=== PATIENT | male | born 1940 | race Two or more races ===

== ENCOUNTER 2016-07-09 05:13 | Inpatient (IN) | payer SELFPAY ==
[~2016-07-09] VITALS: Ht 172.7 cm; Wt 84.1 kg
[2016-07-09 05:44] LABS: Basophils # (auto) 0.1 uL; Basophils % (auto) 0.7 % (0.0-2.0); DEFINITIVE VIEW TRANSMISSION; Eosinophils # (auto) 0.3 uL; Eosinophils % (auto) 1.9 % (0.0-7.0); Hematocrit 51.4 % (41.0-53.0); Hemoglobin 16.1 g/dL (13.5-17.5); Lymphocytes # (auto) 5.6 uL; Lymphocytes % (auto) 35.2 % (10.0-50.0); Mean Corpuscular Hemoglobin 30.1 pg (28.0-32.0); Mean Corpuscular Hgb Conc. 31.2 g/dL (32.0-36.0); Mean Corpuscular Volume 96.4 fL (80.0-100.0); Mean Platelet Volume 10.5 fL (7.4-10.4); Monocytes # (auto) 1.5 uL; Monocytes % (auto) 9.3 % (0.0-12.0); Neutrophils # (auto) 8.4 uL; Neutrophils % (auto) 52.9 % (37.0-80.0); Platelet Count (auto) 247 10^3/uL (140-450); Red Cell Distribution Width 13.7 % (11.6-16.0); White Blood Cell 15.9 10^3/uL (4.4-10.8)
[2016-07-09 06:10] LABS: Albumin 3.7 g/dL (3.4-5.0); BUN/Creatinine Ratio 16.8; Calcium 8.6 mg/dL (8.5-10.1); Potassium 3.4 mmol/L (3.5-5.1)
[2016-07-09 06:20] LABS: Lactic Acid 2.2 mmol/L (0.4-2.0)
[2016-07-09 06:26] LABS: Bilirubin, Total 0.7 mg/dL (0.2-1.0)
[2016-07-09] MEDS ORDERED: FUROSEMIDE 40 MG/4 ML VIAL IV ONE (06:30)
[2016-07-09] MEDS ORDERED: LEVOFLOXACIN 500MG 100 ML IV ONE (06:30)
[2016-07-09 06:33] VITALS: BP 121/71
[2016-07-09 06:47] LABS: B-Type Natriuretic Peptide 913.1 pg/mL (0-100); Temperature: 21.9 C (20.0-25.0)
[2016-07-09 06:54] LABS: REFLEX LACTIC ACID YES OR NO YES
[2016-07-09 07:32] VITALS: BP 118/66
[2016-07-09] MEDS ORDERED: TEMAZEPAM 15 MG CAP PO PRN (09:00)
[2016-07-09] MEDS ORDERED: PROMETHAZINE HCL 25 MG/ML 1ML IV PRN (09:00)
[2016-07-09] MEDS ORDERED: MORPHINE SULF INJ 2 MG/ML SYRINGE 1ML IV PRN ×2 (09:00)
[2016-07-09] MEDS ORDERED: DEXTROSE (50%) 50ML SYRG IV PRN (09:00)
[2016-07-09] MEDS ORDERED: NITROGLYCERIN 0.4 MG SL TAB SL PRN (09:00)
[2016-07-09] MEDS ORDERED: ACETAMINOPHEN 500 MG TAB PO PRN (09:00)
[2016-07-09] MEDS ORDERED: LORazepam 0.5 MG TAB PO PRN (09:00)
[2016-07-09] MEDS ORDERED: HYDROcodone-ACET 5/325MG TAB PO PRN (09:00)
[2016-07-09] MEDS ORDERED: LACTULOSE 20Gm/30ML SOLN PO PRN (09:00)
[2016-07-09] MEDS ORDERED: cefTRIAXone 1GM/50ML D5W 50 ML IV SCH (09:00)
[2016-07-09] MEDS ORDERED: METF-312 PO (09:20)
[2016-07-09] MEDS ORDERED: ENA10T PO (09:20)
[2016-07-09] MEDS ORDERED: OSELTAMIVIR 75 MG CAP PO ONE ×2 (09:30→12:15)
[2016-07-09 09:51] LABS: Urine RBC None Seen /hpf (0 - 3)
[2016-07-09 09:55] LABS: INR 1.09 (0.9-1.15); Partial Thromboplastin Time 24.6 sec (22.64-33.71); Prothrombin Time 11.2 sec (9.37-12.3)
[2016-07-09] MEDS ORDERED: AZITHROMYCIN 500MG/D5W 250ML 250 ML IV SCH (10:00)
[2016-07-09 10:11] LABS: Urine Bilirubin Negative (Negative); Urine Blood Negative /uL (Negative); Urine Color Yellow (Yellow); Urine Glucose Normal (Normal); Urine Ketone Negative (Negative); Urine Nitrite Negative (Negative); Urine Squamous Epithelial Cell FEW /hpf (<5); Urine Urobilinogen Normal (Negative); Urine pH 5.5 (5.0-8.0)
[2016-07-09] MEDS ORDERED: IOHEXOL 350 MG/ML 100ML IJ ONE (11:15)
[2016-07-09] MEDS ORDERED: IODIXANOL 320MG/ML 100ML BTL IV ONE (11:20)
[2016-07-09] MEDS: FUROSEMIDE 40 MG/4 ML VIAL IV SCH (11:39)
[2016-07-09] MEDS: ASPirin 81 mg TAB PO SCH (11:39)
[2016-07-09] MEDS: NITROGLYCERIN 0.2MG/HR TOPICAL PATCH TD SCH (11:40)
[2016-07-09] MEDS: CARVEDILOL 3.125 MG TAB PO SCH ×2 (11:40→22:00)
[2016-07-09] MEDS: ENOXAPARIN SOD 100 MG/1 ML SYRINGE SC SCH ×2 (11:41→22:00)
[2016-07-09] MEDS: POTASSIUM CHL 20 Meq TABLET PO SCH (11:41)
[2016-07-09] MEDS: ENALAPRIL MALEATE 2.5 MG TAB PO SCH (11:41)
[2016-07-09] MEDS ORDERED: ALBUTEROL SULF 2.5 MG/0.5ML(0.5%) NEB SOLN NEB SCH (12:00)
[2016-07-09] MEDS: IPRATROPIUM BROM 0.5 MG/2.5ML INH SOL NEB SCH ×2 (12:15→19:10)
[2016-07-09] MEDS: ACCU-CHEK COMFORT CURVE STRIP VI SCH ×3 (13:00→20:00)
[2016-07-09] MEDS: InsuLIN REG 1unit/0.01ml Soln (100units/ml) SC SCH ×3 (13:48→21:05)
[2016-07-09] MEDS: SODIUM CHLOR 0.9% PF (SALINE LOCK) 10ML VIAL IV SCH ×2 (13:50→22:00)
[2016-07-09] MEDS: ATORVASTATIN 20 MG TAB PO SCH (22:00)
[2016-07-09] MEDS: OSELTAMIVIR 75 MG CAP PO SCH (22:00)
[2016-07-09] MEDS ORDERED: LACTULOSE 20Gm/30ML SOLN PO ONE (22:45)
[2016-07-10] MEDS: IPRATROPIUM BROM 0.5 MG/2.5ML INH SOL NEB SCH ×4 (00:25→19:23)
[2016-07-10 02:39] VITALS: BP 123/72
[2016-07-10] MEDS: ACCU-CHEK COMFORT CURVE STRIP VI SCH ×6 (04:00→20:35)
[2016-07-10] MEDS: InsuLIN REG 1unit/0.01ml Soln (100units/ml) SC SCH ×6 (04:00→20:53)
[2016-07-10] MEDS: SODIUM CHLOR 0.9% PF (SALINE LOCK) 10ML VIAL IV SCH ×3 (05:45→21:34)
[2016-07-10 06:41] LABS: Basophils # (auto) 0.1 uL; Basophils % (auto) 0.4 % (0.0-2.0); Eosinophils # (auto) 0.1 uL; Eosinophils % (auto) 0.9 % (0.0-7.0); Hematocrit 45.3 % (41.0-53.0); Hemoglobin 14.5 g/dL (13.5-17.5); Lymphocytes # (auto) 3.4 uL; Lymphocytes % (auto) 28.6 % (10.0-50.0); Mean Corpuscular Hemoglobin 30.3 pg (28.0-32.0); Mean Corpuscular Hgb Conc. 32.1 g/dL (32.0-36.0); Mean Corpuscular Volume 94.6 fL (80.0-100.0); Mean Platelet Volume 10.2 fL (7.4-10.4); Monocytes # (auto) 1.4 uL; Monocytes % (auto) 11.5 % (0.0-12.0); Neutrophils % (auto) 58.6 % (37.0-80.0); Platelet Count (auto) 225 10^3/uL (140-450); Red Cell Distribution Width 13.8 % (11.6-16.0)
[2016-07-10 07:10] LABS: B-Type Natriuretic Peptide 303.95 pg/mL (0-100); Temperature: 22.2 C (20.0-25.0)
[2016-07-10 07:26] LABS: Albumin 3.2 g/dL (3.4-5.0); BUN/Creatinine Ratio 25.6; Bilirubin, Total 0.6 mg/dL (0.2-1.0); Calcium 8.8 mg/dL (8.5-10.1); Potassium 3.8 mmol/L (3.5-5.1); Total Protein 7.1 g/dL (6.4-8.2)
[2016-07-10] MEDS: FUROSEMIDE 40 MG/4 ML VIAL IV SCH (09:40)
[2016-07-10] MEDS: ASPirin 81 mg TAB PO SCH (09:41)
[2016-07-10] MEDS: CARVEDILOL 3.125 MG TAB PO SCH ×2 (09:41→21:35)
[2016-07-10] MEDS: ENALAPRIL MALEATE 2.5 MG TAB PO SCH (09:42)
[2016-07-10] MEDS: POTASSIUM CHL 20 Meq TABLET PO SCH (09:42)
[2016-07-10] MEDS: OSELTAMIVIR 75 MG CAP PO SCH (09:42)
[2016-07-10] MEDS: NITROGLYCERIN 0.2MG/HR TOPICAL PATCH TD SCH (09:43)
[2016-07-10] MEDS ORDERED: ACETYLCYSTEINE ORAL for CIN 20%(200MG/ML) 4ML PO SCH (10:00)
[2016-07-10] MEDS: ACETYLCYSTEINE ORAL for CIN 20%(200MG/ML) 4ML PO SCH ×2 (10:45→21:13)
[2016-07-10] MEDS: SPIRONOLACTONE 25 MG TAB PO SCH ×2 (11:00→18:41)
[2016-07-10] MEDS: ENOXAPARIN SOD 100 MG/1 ML SYRINGE SC SCH ×2 (11:30→21:07)
[2016-07-10 12:40] VITALS: BP 134/71
[2016-07-10] MEDS ORDERED: ENAL20TA70 PO (13:04)
[2016-07-10 17:00] VITALS: BP 123/75
[2016-07-10 20:00] VITALS: BP 115/69
[2016-07-10] MEDS: ATORVASTATIN 20 MG TAB PO SCH (21:10)
[2016-07-10 22:41] VITALS: BP 122/75
[2016-07-11] MEDS: IPRATROPIUM BROM 0.5 MG/2.5ML INH SOL NEB SCH ×4 (01:13→18:51)
[2016-07-11] MEDS: InsuLIN REG 1unit/0.01ml Soln (100units/ml) SC SCH ×6 (04:00→20:04)
[2016-07-11] MEDS: ACCU-CHEK COMFORT CURVE STRIP VI SCH ×6 (04:20→19:58)
[2016-07-11 05:21] VITALS: BP 135/72
[2016-07-11] MEDS: SODIUM CHLOR 0.9% PF (SALINE LOCK) 10ML VIAL IV SCH ×3 (05:38→22:25)
[2016-07-11] MEDS: SPIRONOLACTONE 25 MG TAB PO SCH ×2 (05:38→17:58)
[2016-07-11 09:00] VITALS: BP 133/80
[2016-07-11] MEDS ORDERED: CLOPIDOGREL 300 MG TAB PO ONE (10:00)
[2016-07-11] MEDS: ACETYLCYSTEINE ORAL for CIN 20%(200MG/ML) 4ML PO SCH ×2 (10:54→22:25)
[2016-07-11] MEDS: ENALAPRIL MALEATE 2.5 MG TAB PO SCH (10:54)
[2016-07-11] MEDS: NITROGLYCERIN 0.2MG/HR TOPICAL PATCH TD SCH (10:55)
[2016-07-11] MEDS: FUROSEMIDE 40 MG/4 ML VIAL IV SCH ×2 (10:56→17:58)
[2016-07-11] MEDS: POTASSIUM CHL 20 Meq TABLET PO SCH (10:56)
[2016-07-11] MEDS: CLOPIDOGREL BISULFATE 75 MG TAB PO SCH (10:56)
[2016-07-11] MEDS: CARVEDILOL 3.125 MG TAB PO SCH ×2 (10:57→22:25)
[2016-07-11] MEDS: ENOXAPARIN SOD 100 MG/1 ML SYRINGE SC SCH ×2 (10:57→22:25)
[2016-07-11] MEDS: ASPirin 81 mg TAB PO SCH (10:57)
[2016-07-11 13:00] VITALS: BP 137/79
[2016-07-11 17:00] VITALS: BP 113/70
[2016-07-11 21:42] VITALS: BP 118/78
[2016-07-11] MEDS: ATORVASTATIN 20 MG TAB PO SCH (22:24)
[2016-07-12] MEDS: ACCU-CHEK COMFORT CURVE STRIP VI SCH ×6 (00:01→19:53)
[2016-07-12] MEDS: InsuLIN REG 1unit/0.01ml Soln (100units/ml) SC SCH ×6 (00:03→19:54)
[2016-07-12] MEDS: IPRATROPIUM BROM 0.5 MG/2.5ML INH SOL NEB SCH ×4 (00:08→18:45)
[2016-07-12] MEDS: ALBUTEROL SULF 2.5 MG/0.5ML(0.5%) NEB SOLN NEB PRN ×2 (00:09→07:20)
[2016-07-12 05:00] VITALS: BP 143/72
[2016-07-12] MEDS: SODIUM CHLOR 0.9% PF (SALINE LOCK) 10ML VIAL IV SCH ×3 (05:24→22:18)
[2016-07-12] MEDS: FUROSEMIDE 40 MG/4 ML VIAL IV SCH ×2 (05:24→18:25)
[2016-07-12] MEDS: SPIRONOLACTONE 25 MG TAB PO SCH ×2 (05:25→18:25)
[2016-07-12 08:51] VITALS: BP 138/66
[2016-07-12] MEDS: POTASSIUM CHL 20 Meq TABLET PO SCH (10:55)
[2016-07-12] MEDS: ASPirin 81 mg TAB PO SCH (10:56)
[2016-07-12] MEDS: ENALAPRIL MALEATE 2.5 MG TAB PO SCH (10:56)
[2016-07-12] MEDS: CLOPIDOGREL BISULFATE 75 MG TAB PO SCH (10:56)
[2016-07-12] MEDS: CARVEDILOL 3.125 MG TAB PO SCH ×2 (10:57→22:19)
[2016-07-12] MEDS: NITROGLYCERIN 0.2MG/HR TOPICAL PATCH TD SCH (10:57)
[2016-07-12 13:00] VITALS: BP 137/72
[2016-07-12 15:22] LABS: Urine Bilirubin Negative (Negative); Urine Color Red (Yellow); Urine Glucose Normal (Normal); Urine Ketone Negative (Negative); Urine Nitrite Negative (Negative); Urine RBC 2646 /hpf (0 - 3); Urine Urobilinogen Normal (Negative); Urine pH 5.5 (5.0-8.0)
[2016-07-12 15:23] LABS: Urine Blood 3+ /uL (Negative)
[2016-07-12 17:01] VITALS: BP 102/64
[2016-07-12 22:00] VITALS: BP 134/80
[2016-07-12] MEDS: ATORVASTATIN 20 MG TAB PO SCH (22:19)
[2016-07-12 23:36] VITALS: BP 134/80
[2016-07-13] MEDS: IPRATROPIUM BROM 0.5 MG/2.5ML INH SOL NEB SCH ×4 (00:07→17:58)
[2016-07-13] MEDS: ALBUTEROL SULF 2.5 MG/0.5ML(0.5%) NEB SOLN NEB PRN ×2 (00:08→17:58)
[2016-07-13] MEDS: ACCU-CHEK COMFORT CURVE STRIP VI SCH ×6 (00:09→21:37)
[2016-07-13] MEDS: InsuLIN REG 1unit/0.01ml Soln (100units/ml) SC SCH ×6 (03:48→21:37)
[2016-07-13 05:00] VITALS: BP 130/64
[2016-07-13] MEDS: FUROSEMIDE 40 MG/4 ML VIAL IV SCH ×2 (05:40→18:24)
[2016-07-13] MEDS: SODIUM CHLOR 0.9% PF (SALINE LOCK) 10ML VIAL IV SCH ×3 (05:41→21:47)
[2016-07-13] MEDS: SPIRONOLACTONE 25 MG TAB PO SCH ×2 (05:41→18:24)
[2016-07-13 05:51] LABS: Temperature: 21.1 C (20.0-25.0)
[2016-07-13 05:59] LABS: BUN/Creatinine Ratio 31.3; Calcium 9.1 mg/dL (8.5-10.1); Potassium 3.5 mmol/L (3.5-5.1)
[2016-07-13] MEDS ORDERED: MIDAZOLAM HCL 1MG/1ML-2 ML VIAL ONE (08:02)
[2016-07-13] MEDS ORDERED: fentaNYL CITRATE 100 MCG/2 ML VL ONE (08:02)
[2016-07-13] MEDS ORDERED: SODIUM CHL 0.9% 0 ML ONE (08:03)
[2016-07-13] MEDS ORDERED: ANGIOMAX 250 MG VIAL IV ONE (08:03)
[2016-07-13] MEDS ORDERED: LIDOCAINE 2%HCL (LOCAL ANESTH.) INJ 20ML MDV ONE (08:53)
[2016-07-13] MEDS ORDERED: IOHEXOL 350 MG/ML 100ML IJ ONE (08:53)
[2016-07-13 09:12] LABS: Basophils # (auto) 0 uL; Basophils % (auto) 0.2 % (0.0-2.0); Eosinophils # (auto) 0.2 uL; Eosinophils % (auto) 1.6 % (0.0-7.0); Hematocrit 46.4 % (41.0-53.0); Hemoglobin 15.6 g/dL (13.5-17.5); Lymphocytes # (auto) 2.2 uL; Lymphocytes % (auto) 19.3 % (10.0-50.0); Mean Corpuscular Hemoglobin 31.5 pg (28.0-32.0); Mean Corpuscular Hgb Conc. 33.6 g/dL (32.0-36.0); Mean Corpuscular Volume 93.8 fL (80.0-100.0); Mean Platelet Volume 10.3 fL (7.4-10.4); Monocytes # (auto) 1.3 uL; Monocytes % (auto) 11.9 % (0.0-12.0); Neutrophils # (auto) 7.6 uL; Platelet Count (auto) 253 10^3/uL (140-450); Red Cell Distribution Width 13.4 % (11.6-16.0); White Blood Cell 11.3 10^3/uL (4.4-10.8)
[2016-07-13] MEDS ORDERED: MORPHINE SULF INJ 2 MG/ML SYRINGE 1ML ONE (09:17)
[2016-07-13 09:20] VITALS: BP 130/65
[2016-07-13] MEDS: CLOPIDOGREL BISULFATE 75 MG TAB PO SCH (10:00)
[2016-07-13] MEDS: CARVEDILOL 3.125 MG TAB PO SCH ×3 (10:00→21:47)
[2016-07-13] MEDS: ASPirin 81 mg TAB PO SCH (10:00)
[2016-07-13] MEDS: NITROGLYCERIN 0.2MG/HR TOPICAL PATCH TD SCH ×2 (10:00→13:00)
[2016-07-13] MEDS: ENALAPRIL MALEATE 2.5 MG TAB PO SCH ×2 (10:00→13:02)
[2016-07-13] MEDS: POTASSIUM CHL 20 Meq TABLET PO SCH (10:00)
[2016-07-13] MEDS: METOLAZONE 5 MG TAB PO SCH (10:00)
[2016-07-13 10:10] LABS: INR 1.05 (0.9-1.15); Prothrombin Time 10.8 sec (9.37-12.3)
[2016-07-13] MEDS ORDERED: SODIUM CHLORIDE 0.9% 1,000 ML IV SCH (10:46)
[2016-07-13] MEDS ORDERED: MORPHINE SULF INJ 2 MG/ML SYRINGE 1ML IV PRN ×2 (11:00)
[2016-07-13] MEDS ORDERED: ACETAMINOPHEN 500 MG TAB PO PRN (11:00)
[2016-07-13] MEDS ORDERED: NITROGLYCERIN 0.4 MG SL TAB SL PRN ×2 (11:00)
[2016-07-13 13:00] VITALS: BP 139/77
[2016-07-13] MEDS: ENOXAPARIN SOD 80 MG/0.8ML SYRINGE SC SCH ×2 (15:15→21:47)
[2016-07-13 17:00] VITALS: BP 111/64
[2016-07-13] MEDS: ATORVASTATIN 20 MG TAB PO SCH (21:47)
[2016-07-13 22:00] VITALS: BP 121/70
[2016-07-14] MEDS: IPRATROPIUM BROM 0.5 MG/2.5ML INH SOL NEB SCH ×4 (00:35→19:43)
[2016-07-14] MEDS: ALBUTEROL SULF 2.5 MG/0.5ML(0.5%) NEB SOLN NEB PRN (00:35)
[2016-07-14 05:00] VITALS: BP 138/72
[2016-07-14] MEDS: FUROSEMIDE 40 MG/4 ML VIAL IV SCH ×2 (05:50→18:27)
[2016-07-14] MEDS: SPIRONOLACTONE 25 MG TAB PO SCH ×2 (05:51→18:00)
[2016-07-14] MEDS: SODIUM CHLOR 0.9% PF (SALINE LOCK) 10ML VIAL IV SCH ×3 (05:51→22:39)
[2016-07-14] MEDS: ACCU-CHEK COMFORT CURVE STRIP VI SCH ×4 (06:47→22:00)
[2016-07-14] MEDS: InsuLIN REG 1unit/0.01ml Soln (100units/ml) SC SCH ×4 (06:48→23:09)
[2016-07-14] MEDS ORDERED: MORPHINE SULF INJ 2 MG/ML SYRINGE 1ML IV PRN ×3 (07:45→17:15)
[2016-07-14] MEDS ORDERED: NITROGLYCERIN 0.4 MG SL TAB SL PRN ×2 (07:45→17:15)
[2016-07-14 08:00] VITALS: BP 138/65
[2016-07-14] MEDS ORDERED: AMIODARONE HCL 200 MG TAB PO ONE (08:00)
[2016-07-14 08:54] LABS: Basophils # (auto) 0 uL; Basophils % (auto) 0.2 % (0.0-2.0); Eosinophils # (auto) 0.1 uL; Hematocrit 44.1 % (41.0-53.0); Hemoglobin 15.1 g/dL (13.5-17.5); Lymphocytes # (auto) 2.4 uL; Lymphocytes % (auto) 21.5 % (10.0-50.0); Mean Corpuscular Hemoglobin 31.7 pg (28.0-32.0); Mean Corpuscular Hgb Conc. 34.2 g/dL (32.0-36.0); Mean Corpuscular Volume 92.7 fL (80.0-100.0); Mean Platelet Volume 10.3 fL (7.4-10.4); Monocytes % (auto) 9.1 % (0.0-12.0); Neutrophils # (auto) 7.7 uL; Neutrophils % (auto) 68.2 % (37.0-80.0); Platelet Count (auto) 254 10^3/uL (140-450); Red Cell Distribution Width 13.6 % (11.6-16.0); White Blood Cell 11.2 10^3/uL (4.4-10.8)
[2016-07-14 09:00] VITALS: BP 124/71
[2016-07-14 09:20] LABS: Albumin 3.3 g/dL (3.4-5.0); BUN/Creatinine Ratio 33.6; Bilirubin, Total 0.8 mg/dL (0.2-1.0); Calcium 8.7 mg/dL (8.5-10.1); Potassium 3.8 mmol/L (3.5-5.1); Total Protein 7.7 g/dL (6.4-8.2)
[2016-07-14] MEDS: ENOXAPARIN SOD 80 MG/0.8ML SYRINGE SC SCH (10:00)
[2016-07-14] MEDS: CARVEDILOL 3.125 MG TAB PO SCH ×2 (10:16→22:43)
[2016-07-14] MEDS: ASPirin 81 mg TAB PO SCH (10:16)
[2016-07-14] MEDS: ENALAPRIL MALEATE 2.5 MG TAB PO SCH (10:16)
[2016-07-14] MEDS: POTASSIUM CHL 20 Meq TABLET PO SCH (10:17)
[2016-07-14] MEDS: METOLAZONE 5 MG TAB PO SCH (10:17)
[2016-07-14] MEDS: NITROGLYCERIN 0.2MG/HR TOPICAL PATCH TD SCH (10:19)
[2016-07-14 13:00] VITALS: BP 122/60
[2016-07-14] MEDS ORDERED: LIDOCAINE 2%HCL (LOCAL ANESTH.) INJ 20ML MDV ONE (13:51)
[2016-07-14] MEDS ORDERED: IODIXANOL 320MG/ML 100ML BTL IV ONE (13:53)
[2016-07-14] MEDS ORDERED: ANGIOMAX 250 MG VIAL IV ONE (15:40)
[2016-07-14] MEDS ORDERED: MIDAZOLAM HCL 1MG/1ML-2 ML VIAL ONE (15:41)
[2016-07-14] MEDS ORDERED: SODIUM CHL 0.9% 50 ML ONE (15:41)
[2016-07-14] MEDS ORDERED: fentaNYL CITRATE 100 MCG/2 ML VL ONE (15:41)
[2016-07-14] MEDS ORDERED: MORPHINE SULF INJ 2 MG/ML SYRINGE 1ML ONE (15:59)
[2016-07-14] MEDS ORDERED: HEPARIN 1,000 UNITS/ml 1ML VIAL ONE (16:06)
[2016-07-14] MEDS ORDERED: EPINEPHrine HCL 1 MG/10 ML SYRG ONE (16:19)
[2016-07-14] MEDS ORDERED: ATROPINE SULF 0.5 MG/5ML SYR ONE (16:19)
[2016-07-14] MEDS ORDERED: SODIUM BICARBONATE 8.4% INJ 50ML SYRINGE ONE (16:42)
[2016-07-14] MEDS ORDERED: CLOPIDOGREL 300 MG TAB ONE (16:57)
[2016-07-14] MEDS ORDERED: SODIUM CHLORIDE 0.9% 1,000 ML IV SCH (17:06)
[2016-07-14] MEDS ORDERED: LORazepam 0.5 MG TAB PO PRN (17:15)
[2016-07-14] MEDS ORDERED: CLOPIDOGREL 300 MG TAB PO ONE ×2 (17:15→17:30)
[2016-07-14] MEDS ORDERED: MILK OF MAGNESIA 30ML SUSP PO ONE (17:15)
[2016-07-14] MEDS ORDERED: ONDANSETRON HCL 4 MG/2 ML VIAL IV PRN (17:15)
[2016-07-14] MEDS ORDERED: ACETAMINOPHEN 500 MG TAB PO PRN (17:15)
[2016-07-14] MEDS ORDERED: D5W IV SCH (17:30)
[2016-07-14] MEDS ORDERED: SODIUM BICARBONATE IV SCH (17:30)
[2016-07-14 20:00] VITALS: BP 128/61
[2016-07-14 20:31] VITALS: BP 128/61
[2016-07-14] MEDS: ATORVASTATIN 20 MG TAB PO SCH (22:39)
[2016-07-14] MEDS: FAMOTIDINE 20 MG TAB PO SCH (22:43)
[2016-07-14] MEDS: AMIODARONE HCL 200 MG TAB PO SCH (22:43)
[2016-07-15] VITALS: BP 131/72
[2016-07-15] MEDS: IPRATROPIUM BROM 0.5 MG/2.5ML INH SOL NEB SCH ×3 (00:09→11:27)
[2016-07-15] MEDS: ALBUTEROL SULF 2.5 MG/0.5ML(0.5%) NEB SOLN NEB PRN (00:09)
[2016-07-15 04:00] VITALS: BP 139/54
[2016-07-15] MEDS ORDERED: LATA0.00 EACHEYE (05:39)
[2016-07-15] MEDS ORDERED: MUPIROCIN 2% OINT 22GM TOP SCH (06:00)
[2016-07-15 06:25] LABS: BUN/Creatinine Ratio 35.4; Potassium 3.6 mmol/L (3.5-5.1)
[2016-07-15] MEDS: FUROSEMIDE 40 MG/4 ML VIAL IV SCH ×2 (06:33→18:19)
[2016-07-15] MEDS: SODIUM CHLOR 0.9% PF (SALINE LOCK) 10ML VIAL IV SCH ×2 (06:33→14:20)
[2016-07-15] MEDS: ACCU-CHEK COMFORT CURVE STRIP VI SCH ×3 (06:34→17:00)
[2016-07-15] MEDS: SPIRONOLACTONE 25 MG TAB PO SCH ×2 (06:34→18:19)
[2016-07-15] MEDS: InsuLIN REG 1unit/0.01ml Soln (100units/ml) SC SCH ×3 (07:43→17:00)
[2016-07-15 08:00] VITALS: BP 143/60
[2016-07-15] MEDS: AMIODARONE HCL 200 MG TAB PO SCH (09:36)
[2016-07-15] MEDS: ASPirin 81 mg TAB PO SCH (09:36)
[2016-07-15] MEDS: CARVEDILOL 3.125 MG TAB PO SCH (09:37)
[2016-07-15] MEDS: FAMOTIDINE 20 MG TAB PO SCH (09:37)
[2016-07-15] MEDS: POTASSIUM CHL 20 Meq TABLET PO SCH (09:37)
[2016-07-15] MEDS: METOLAZONE 5 MG TAB PO SCH (09:38)
[2016-07-15] MEDS: NITROGLYCERIN 0.2MG/HR TOPICAL PATCH TD SCH (09:38)
[2016-07-15] MEDS: ENALAPRIL MALEATE 2.5 MG TAB PO SCH (09:38)
[2016-07-15 11:24] VITALS: BP 139/71
[2016-07-15 16:00] VITALS: BP 118/56
[2016-07-15 17:33] VITALS: BP 118/56
[2016-07-15] MEDS ORDERED: ASCORBIC ACID 500 MG TAB PO ONE (22:00)
[2016-07-16] MEDS ORDERED: CHLORHEXIDINE 4% TOPICAL soln 473ML TOP ONE (02:00)
[2016-07-16] MEDS ORDERED: VANCOMYCIN 1GM/250ML D5W 250 ML IV ONE (06:00)
[2016-07-16] MEDS ORDERED: CHLORHEXIDINE 0.12% ORAL rinse 473ML MT ONE (06:00)
[2016-07-16] MEDS ORDERED: ceFAZolin 1GM 2 GM in D5W 5% 50 ML IV ONE (06:00)
[2016-07-16] MEDS ORDERED: ACCU-CHEK COMFORT CURVE STRIP VI ONE (06:00)
== END 2016-07-15 19:20 | disposition home or self-care (01) | DRG 246 ==
LOC: ER 05:14 → TELE 05:15 → UNDOADMIN 05:15 → TELE-E-ADS 07-10 12:01 → TELE-CENTR 07-10 14:25 → DOU IN ICU 07-14 18:04
PROVIDERS: ADMIT Internal Medicine; ATTEND Internal Medicine Pulmonary Disease
PROC: 027035Z Dilation of Coronary Artery, One Artery with Two Drug-eluting Intraluminal Devices, Percutaneous Approach (ICD-10-PCS; principal; 2016-07-13)
PROC: 4A023N7 Measurement of Cardiac Sampling and Pressure, Left Heart, Percutaneous Approach (ICD-10-PCS; 2016-07-13)
PROC: B2111ZZ Fluoroscopy of Multiple Coronary Arteries using Low Osmolar Contrast (ICD-10-PCS; 2016-07-13)
DX: I21.4 Non-ST elevation (NSTEMI) myocardial infarction (principal); I50.43 Acute on chronic combined systolic (congestive) and diastolic (congestive) heart failure; J96.01 Acute respiratory failure with hypoxia; I13.0 Hypertensive heart and chronic kidney disease with heart failure and stage 1 through stage 4 chronic kidney disease, or unspecified chronic kidney disease; E78.5 Hyperlipidemia, unspecified; I25.10 Atherosclerotic heart disease of native coronary artery without angina pectoris; I48.91 Unspecified atrial fibrillation; E66.9 Obesity, unspecified; I25.5 Ischemic cardiomyopathy; N18.9 Chronic kidney disease, unspecified; E11.22 Type 2 diabetes mellitus with diabetic chronic kidney disease; I73.9 Peripheral vascular disease, unspecified; Z68.28 Body mass index [BMI] 28.0-28.9, adult; Z87.891 Personal history of nicotine dependence; Z90.49 Acquired absence of other specified parts of digestive tract; Z83.3 Family history of diabetes mellitus; Z82.1 Family history of blindness and visual loss
CPT/HCPCS: 36415; 36600; 51702; 71010; 71020; 71275; 76700; 80048; 80053; 80061; 81001; 82270; 82550; 82565; 82805; 82962; 83036; 83605; 83735; 83880; 84439; 84443; 84484; 85025; 85379; 85576; 85610; 85652; 85730; 86141; 86850; 86900; 86901; 86920; 87040; 87081; 87400; 87493; 92928; 93005; 93306; 93458; 93886; 94010; 94640; 94660; 96365; 96367; 96375; 99291; J0461; J0696; J1815; J1956; J2250; Q9967

== ENCOUNTER 2016-12-16 06:04 | Inpatient (IN) | payer MEDICAID ==
[~2016-12-16] VITALS: Ht 167.6 cm; Wt 81.6 kg
[2016-12-16] VITALS (7 sets, daily range): BP systolic 154–186; BP diastolic 61–113
[~2016-12-16 06:04] MED LIST: ENAL20TA70 PO; LATA0.00 EACHEYE; METF-370 PO
[2016-12-16 06:30] LABS: Allen Test Yes; Base Excess -4.3 mmol/L (-2.0-2.0); Blood 02Sat 95.7 % (96-100); Blood COHb 0.1 % (0.5-1.5); Blood MetHb 0.3 % (0.0-1.5); HCO3 22.2 mmol/L (22-26.0); HHb 4.3 % (0.0-5.0); MODE MASK - BIPAP; O2Hb 95.3 % (94.0-97.0); PCO2 45.6 mmHg (35.0-45.0); PCO2(T) 45.6 mmHg (35.0-45.0); PIP 15; PO2 96.7 mmHg (80.0-100.0); PO2(T) 96.7 mmHg (80.0-100.0); Pressure Support 8; Sample Type Arterial; pH 7.305 (7.350-7.450)
[2016-12-16] MEDS ORDERED: DILTIAZEM HCL 25 MG/5 ML VIAL IV ONE (06:30)
[2016-12-16] MEDS ORDERED: NITROGLYCERIN 50MG/250ML 250 ML IV ONE (06:30)
[2016-12-16] MEDS ORDERED: ENALAPRILAT 1.25 MG/ML-1ML VIAL IV ONE (06:30)
[2016-12-16 06:42] LABS: Basophils # (auto) 0.1 uL; Basophils % (auto) 0.9 % (0.0-2.0); CONDITION Y; Eosinophils # (auto) 0.3 uL; Eosinophils % (auto) 2.3 % (0.0-7.0); Hematocrit 48.9 % (41.0-53.0); Hemoglobin 16.4 g/dL (13.5-17.5); Lymphocytes # (auto) 4.3 uL; Lymphocytes % (auto) 34.9 % (10.0-50.0); Mean Corpuscular Hemoglobin 31.6 pg (28.0-32.0); Mean Corpuscular Hgb Conc. 33.5 g/dL (32.0-36.0); Mean Corpuscular Volume 94.5 fL (80.0-100.0); Mean Platelet Volume 10.4 fL (7.4-10.4); Monocytes % (auto) 8.1 % (0.0-12.0); Neutrophils # (auto) 6.6 uL; Neutrophils % (auto) 53.8 % (37.0-80.0); Platelet Count (auto) 263 10^3/uL (140-450); Red Cell Distribution Width 14.1 % (11.6-16.0); White Blood Cell 12.3 10^3/uL (4.4-10.8)
[2016-12-16 06:54] LABS: Partial Thromboplastin Time 20.4 sec (22.64-33.71); Prothrombin Time 10.9 sec (9.37-12.3)
[2016-12-16 07:01] LABS: BUN/Creatinine Ratio 18.2; Calcium 8.8 mg/dL (8.5-10.1); Magnesium 2.4 mg/dL (1.6-2.6); Potassium 3.9 mmol/L (3.5-5.1)
[2016-12-16 07:08] LABS: B-Type Natriuretic Peptide 742.1 pg/mL (0-100); Temperature: 23.9 C (20.0-25.0)
[2016-12-16 07:09] LABS: Bilirubin, Total 0.6 mg/dL (0.2-1.0); Total Protein 8.6 g/dL (6.4-8.2)
[2016-12-16] MEDS ORDERED: SODIUM CHLORIDE 0.9% 1,000 ML IV ONE ×2 (09:02)
[2016-12-16] MEDS ORDERED: IOHEXOL 350 MG/ML 100ML IJ ONE (09:04)
[2016-12-16] MEDS ORDERED: FUROSEMIDE 20 MG/2 ML VIAL IV ONE (09:15)
[2016-12-16] MEDS ORDERED: cefTRIAXone 1GM/50ML D5W 50 ML IV ONE (09:15)
[2016-12-16] MEDS ORDERED: IODIXANOL 320MG/ML 100ML BTL IV ONE (09:20)
[2016-12-16] MEDS ORDERED: ACETAMINOPHEN 500 MG TAB PO PRN (10:15)
[2016-12-16] MEDS ORDERED: MORPHINE SULF INJ 2 MG/ML SYRINGE 1ML IV PRN ×2 (10:15)
[2016-12-16] MEDS ORDERED: NITROGLYCERIN 0.4 MG SL TAB SL PRN (10:15)
[2016-12-16] MEDS ORDERED: TEMAZEPAM 15 MG CAP PO PRN (10:15)
[2016-12-16] MEDS ORDERED: DEXTROSE (50%) 50ML SYRG IV PRN ×2 (10:15)
[2016-12-16] MEDS ORDERED: HYDROcodone-ACET 5/325MG TAB PO PRN (10:15)
[2016-12-16] MEDS ORDERED: LORazepam 0.5 MG TAB PO PRN (10:15)
[2016-12-16] MEDS ORDERED: ONDANSETRON HCL 4 MG/2 ML VIAL IV PRN (10:15)
[2016-12-16] MEDS ORDERED: LACTULOSE 20Gm/30ML SOLN PO PRN (10:15)
[2016-12-16 10:30] LABS: Urine Bilirubin Negative (Negative); Urine Blood Negative /uL (Negative); Urine Color Yellow (Yellow); Urine Glucose TRACE mg/dL (Normal); Urine Hyaline Cast FEW /lpf (0 - 2); Urine Ketone Negative (Negative); Urine Mucus FEW (None Seen); Urine Nitrite Negative (Negative); Urine RBC <1 /hpf (0 - 3); Urine Squamous Epithelial Cell FEW /hpf (<5); Urine Urobilinogen Normal (Negative); Urine pH 5.5 (5.0-8.0)
[2016-12-16] MEDS: InsuLIN REG 1unit/0.01ml Soln (100units/ml) SC SCH ×3 (11:30→21:55)
[2016-12-16] MEDS: ACCU-CHEK COMFORT CURVE STRIP VI SCH ×3 (11:36→21:55)
[2016-12-16] MEDS ORDERED: POTASSIUM CHL 20MEQ/100ML 100 ML IV SCH (14:15)
[2016-12-16] MEDS ORDERED: POTASSIUM CHLORIDE 40 MEQ, LIDOCAINE 1% (LOCAL ANESTH.) 4 ML in SODIUM CHL 0.9% 250 ML IV ONE (15:00)
[2016-12-16] MEDS: AMIODARONE HCL 900 MG in DEXTROSE 500 ML IV SCH (15:23)
[2016-12-16] MEDS ORDERED: AMIODARONE HCL 900 MG in DEXTROSE 500 ML IV SCH (20:17)
[2016-12-16] MEDS ORDERED: IPRATROPIUM BROM 0.5 MG/2.5ML INH SOL NEB PRN (20:30)
[2016-12-16] MEDS ORDERED: ASPI325T25 PO (20:30)
[2016-12-16] MEDS ORDERED: LEVO50TA7 PO (20:33)
[2016-12-16] MEDS ORDERED: SIMV-13 PO (20:33)
[2016-12-16] MEDS: ENALAPRIL MALEATE 10 MG TAB PO SCH (21:54)
[2016-12-17] MEDS: ACCU-CHEK COMFORT CURVE STRIP VI SCH ×4 (06:45→21:35)
[2016-12-17] MEDS: InsuLIN REG 1unit/0.01ml Soln (100units/ml) SC SCH ×4 (06:45→21:35)
[2016-12-17 07:09] LABS: Basophils # (auto) 0 uL; Basophils % (auto) 0.3 % (0.0-2.0); CONDITION Y; Eosinophils # (auto) 0.2 uL; Eosinophils % (auto) 1.5 % (0.0-7.0); Hematocrit 43.2 % (41.0-53.0); Hemoglobin 14.6 g/dL (13.5-17.5); Lymphocytes # (auto) 2.7 uL; Lymphocytes % (auto) 25.9 % (10.0-50.0); Mean Corpuscular Hemoglobin 31.7 pg (28.0-32.0); Mean Corpuscular Hgb Conc. 33.7 g/dL (32.0-36.0); Mean Corpuscular Volume 94.1 fL (80.0-100.0); Monocytes % (auto) 9.9 % (0.0-12.0); Neutrophils # (auto) 6.4 uL; Neutrophils % (auto) 62.4 % (37.0-80.0); Platelet Count (auto) 229 10^3/uL (140-450); Red Cell Distribution Width 14.1 % (11.6-16.0); White Blood Cell 10.3 10^3/uL (4.4-10.8)
[2016-12-17 07:47] LABS: BUN/Creatinine Ratio 23.3; Calcium 8.7 mg/dL (8.5-10.1); Potassium 3.7 mmol/L (3.5-5.1)
[2016-12-17 08:00] VITALS: BP 168/81
[2016-12-17 08:03] LABS: Temperature: 23.3 C (20.0-25.0)
[2016-12-17] MEDS ORDERED: cefTRIAXone 1GM/50ML D5W 50 ML IV SCH (09:00)
[2016-12-17] MEDS: ENALAPRIL MALEATE 10 MG TAB PO SCH ×2 (09:53→21:34)
[2016-12-17] MEDS: ASPirin 81 mg TAB PO SCH (09:54)
[2016-12-17] MEDS: POTASSIUM CHL 20 Meq TABLET PO SCH (09:54)
[2016-12-17] MEDS: FUROSEMIDE 40 MG/4 ML VIAL IV SCH (10:00)
[2016-12-17] MEDS ORDERED: AZITHROMYCIN 500MG/D5W 250ML 250 ML IV SCH (10:00)
[2016-12-17] MEDS ORDERED: FUROSEMIDE 40 MG/4 ML VIAL ONE (10:42)
[2016-12-17 12:00] VITALS: BP 151/95
[2016-12-17] MEDS: AMIODARONE HCL 900 MG in DEXTROSE 500 ML IV SCH ×2 (15:00→22:14)
[2016-12-17 15:58] VITALS: BP 138/45
[2016-12-17 19:53] VITALS: BP 154/66
[2016-12-18] MEDS: ACCU-CHEK COMFORT CURVE STRIP VI SCH ×4 (06:33→21:30)
[2016-12-18] MEDS: InsuLIN REG 1unit/0.01ml Soln (100units/ml) SC SCH ×4 (06:33→21:30)
[2016-12-18 06:54] LABS: Basophils # (auto) 0 uL; Basophils % (auto) 0.3 % (0.0-2.0); CONDITION Y; Eosinophils # (auto) 0.2 uL; Eosinophils % (auto) 1.6 % (0.0-7.0); Hematocrit 44.7 % (41.0-53.0); Lymphocytes # (auto) 2.5 uL; Lymphocytes % (auto) 19.3 % (10.0-50.0); Mean Corpuscular Hemoglobin 31.6 pg (28.0-32.0); Mean Corpuscular Hgb Conc. 33.7 g/dL (32.0-36.0); Mean Corpuscular Volume 93.8 fL (80.0-100.0); Mean Platelet Volume 10.6 fL (7.4-10.4); Monocytes # (auto) 1.5 uL; Monocytes % (auto) 11.7 % (0.0-12.0); Neutrophils # (auto) 8.8 uL; Neutrophils % (auto) 67.1 % (37.0-80.0); Platelet Count (auto) 240 10^3/uL (140-450); Red Cell Distribution Width 13.4 % (11.6-16.0); White Blood Cell 13.1 10^3/uL (4.4-10.8)
[2016-12-18 07:21] LABS: BUN/Creatinine Ratio 21.2; Calcium 8.7 mg/dL (8.5-10.1); Magnesium 2.4 mg/dL (1.6-2.6); Phosphorus 3.5 mg/dL (2.5-4.90); Potassium 3.7 mmol/L (3.5-5.1)
[2016-12-18 08:00] VITALS: BP 161/104
[2016-12-18] MEDS: FUROSEMIDE 40 MG/4 ML VIAL IV SCH (10:31)
[2016-12-18] MEDS: ENALAPRIL MALEATE 10 MG TAB PO SCH ×2 (10:31→21:30)
[2016-12-18] MEDS: ASPirin 81 mg TAB PO SCH (10:32)
[2016-12-18] MEDS: POTASSIUM CHL 20 Meq TABLET PO SCH (10:32)
[2016-12-18 12:00] VITALS: BP 143/75
[2016-12-18] MEDS ORDERED: POTASSIUM CHL 20 Meq TABLET PO ONE (12:00)
[2016-12-18] MEDS: GIVE UN DILUTED IV SCH ×2 (12:35→16:30)
[2016-12-18] MEDS: BUMETANIDE IV SCH ×2 (12:35→16:30)
[2016-12-18] MEDS: AMIODARONE HCL 200 MG TAB PO SCH ×2 (12:36→21:29)
[2016-12-18 16:00] VITALS: BP 148/81
[2016-12-18 20:00] VITALS: BP 144/82
[2016-12-19 06:00] LABS: Basophils # (auto) 0 uL; Basophils % (auto) 0.3 % (0.0-2.0); CONDITION Y; DEFINITIVE SEE PRINTOUT; Eosinophils # (auto) 0.1 uL; Eosinophils % (auto) 1.2 % (0.0-7.0); Hematocrit 47.9 % (41.0-53.0); Hemoglobin 16.2 g/dL (13.5-17.5); Lymphocytes # (auto) 1.9 uL; Lymphocytes % (auto) 15.9 % (10.0-50.0); Mean Corpuscular Hemoglobin 31.7 pg (28.0-32.0); Mean Corpuscular Hgb Conc. 33.8 g/dL (32.0-36.0); Mean Corpuscular Volume 93.9 fL (80.0-100.0); Mean Platelet Volume 10.5 fL (7.4-10.4); Monocytes # (auto) 1.6 uL; Neutrophils # (auto) 8.5 uL; Neutrophils % (auto) 69.6 % (37.0-80.0); Platelet Count (auto) 234 10^3/uL (140-450); Red Cell Distribution Width 13.8 % (11.6-16.0); White Blood Cell 12.3 10^3/uL (4.4-10.8)
[2016-12-19] MEDS: ACCU-CHEK COMFORT CURVE STRIP VI SCH ×4 (06:03→21:42)
[2016-12-19] MEDS: InsuLIN REG 1unit/0.01ml Soln (100units/ml) SC SCH ×4 (06:03→21:43)
[2016-12-19 06:27] LABS: BUN/Creatinine Ratio 21.2; Calcium 9.2 mg/dL (8.5-10.1); Magnesium 2.5 mg/dL (1.6-2.6); Phosphorus 3.9 mg/dL (2.5-4.90); Potassium 3.6 mmol/L (3.5-5.1)
[2016-12-19 10:21] VITALS: BP 140/74
[2016-12-19] MEDS: POTASSIUM CHL 20 Meq TABLET PO SCH (10:38)
[2016-12-19] MEDS: ASPirin 81 mg TAB PO SCH (10:38)
[2016-12-19] MEDS: AMIODARONE HCL 200 MG TAB PO SCH ×2 (10:38→21:42)
[2016-12-19] MEDS: ENALAPRIL MALEATE 10 MG TAB PO SCH ×2 (10:39→21:42)
[2016-12-19] MEDS: FUROSEMIDE 40 MG/4 ML VIAL IV SCH (10:39)
[2016-12-19 13:00] VITALS: BP 126/58
[2016-12-19 15:33] VITALS: BP 126/58
[2016-12-19 17:00] VITALS: BP 137/72
[2016-12-19 22:00] VITALS: BP 153/79
[2016-12-20 05:00] VITALS: BP 157/92
[2016-12-20] MEDS: InsuLIN REG 1unit/0.01ml Soln (100units/ml) SC SCH ×3 (06:20→17:00)
[2016-12-20] MEDS: ACCU-CHEK COMFORT CURVE STRIP VI SCH ×3 (06:20→17:00)
[2016-12-20 09:00] VITALS: BP 149/79
[2016-12-20] MEDS ORDERED: FURO20TA PO (10:24)
[2016-12-20] MEDS ORDERED: AMI200T PO (10:24)
[2016-12-20] MEDS ORDERED: POTA20TA53 PO (10:24)
[2016-12-20] MEDS: ASPirin 81 mg TAB PO SCH (10:51)
[2016-12-20] MEDS: POTASSIUM CHL 20 Meq TABLET PO SCH (10:52)
[2016-12-20] MEDS: ENALAPRIL MALEATE 10 MG TAB PO SCH (10:52)
[2016-12-20] MEDS: AMIODARONE HCL 200 MG TAB PO SCH (10:52)
[2016-12-20] MEDS: FUROSEMIDE 40 MG/4 ML VIAL IV SCH (10:52)
[2016-12-20] MEDS ORDERED: amLODIPine BESYLATE 5 MG TAB PO SCH (11:39)
[2016-12-20 13:00] VITALS: BP 131/59
[2016-12-20 13:14] LABS: Allen Test Yes; Base Excess 1.5 mmol/L (-2.0-2.0); Blood 02Sat 92.7 % (96-100); Blood COHb 0.3 % (0.5-1.5); Blood MetHb 0.5 % (0.0-1.5); HCO3 25.5 mmol/L (22-26.0); HHb 7.2 % (0.0-5.0); MODE ROOM AIR; PCO2 38.6 mmHg (35.0-45.0); PCO2(T) 38.6 mmHg (35.0-45.0); PO2 68.6 mmHg (80.0-100.0); PO2(T) 68.6 mmHg (80.0-100.0); Room 0216T; Sample Type Arterial; pH 7.438 (7.350-7.450)
[2016-12-21] MEDS ORDERED: AMIODARONE HCL 200 MG TAB PO SCH (10:00)
== END 2016-12-20 18:15 | disposition home or self-care (01) | DRG 133 ==
LOC: EDBD 06:04 → ER 06:04 → TELE 06:05 → DOU IN ICU 18:50 → TELE-CENTR 12-19 09:53
PROVIDERS: ADMIT Nurse Practitioner Family; ATTEND Nurse Practitioner Acute Care
PROC: 5A09357 Assistance with Respiratory Ventilation, Less than 24 Consecutive Hours, Continuous Positive Airway Pressure (ICD-10-PCS; principal; 2016-12-16)
DX: J96.02 Acute respiratory failure with hypercapnia (principal); I50.43 Acute on chronic combined systolic (congestive) and diastolic (congestive) heart failure; N17.9 Acute kidney failure, unspecified; D68.59 Other primary thrombophilia; E11.22 Type 2 diabetes mellitus with diabetic chronic kidney disease; E11.51 Type 2 diabetes mellitus with diabetic peripheral angiopathy without gangrene; N18.3 Chronic kidney disease, stage 3 (moderate); I27.2 Other secondary pulmonary hypertension; I13.0 Hypertensive heart and chronic kidney disease with heart failure and stage 1 through stage 4 chronic kidney disease, or unspecified chronic kidney disease; I48.91 Unspecified atrial fibrillation; E78.5 Hyperlipidemia, unspecified; I25.5 Ischemic cardiomyopathy; E66.9 Obesity, unspecified; I25.10 Atherosclerotic heart disease of native coronary artery without angina pectoris; I25.2 Old myocardial infarction; Z83.3 Family history of diabetes mellitus; Z90.49 Acquired absence of other specified parts of digestive tract; Z95.5 Presence of coronary angioplasty implant and graft; Z87.891 Personal history of nicotine dependence; Z79.899 Other long term (current) drug therapy; Z68.29 Body mass index [BMI] 29.0-29.9, adult
CPT/HCPCS: 36415; 36600; 71010; 71275; 80048; 80053; 81001; 82550; 82805; 82962; 83036; 83605; 83735; 83880; 84100; 84443; 84484; 85025; 85379; 85610; 85730; 87040; 87081; 87086; 93005; 93306; 94640; 94660; 96365; 96375; 99291; J0696; J1815; J2001; J3480; Q9967